=== PATIENT | male | born 1995 | race Caucasian/White ===

== ENCOUNTER → 2018-10-14 | Outpatient (CLI) | payer OTHER ==
--- NOTE | 2018-10-14 09:26 | REP ---
Clinical: Solitary pulmonary nodule. Technique: Axial noncontrast images from the thoracic inlet to the upper abdomen with coronal and sagittal re-formations. Comparison: Chest x-ray dated 10/05/2018. Findings: The bilateral lung delacruz are well-aerated and essentially clear. No consolidation, significant nodule, or mass lesion. The questionable 6 mm nodule in the left upper lobe by x-ray is identified and appears completely calcified consistent with old granulomas disease. No effusion. No pneumothorax. Tracheobronchial tree is patent. No adenopathy. The mediastinum demonstrates normal to passage aorta, pulmonary vasculature and heart/pericardium. Limited upper abdomen demonstrates normal bilateral adrenal glands. Impression: 1. No acute mediastinal or pleuroparenchymal process. 2. A 6 mm calcified granuloma in the left upper lobe consistent with chronic change related to prior granulomas disease. Electronically Signed by Gilberto Luong MD 10/14/2018 09:17 A
== END ==
LOC: M RAD 06:48
DX: R91.1 Solitary pulmonary nodule (principal)